=== PATIENT | female | born 1960 | race Hispanic/Latino ===

== ENCOUNTER → 2024-10-01 | Outpatient (CLI) | payer OTHER ==
--- NOTE | 2024-10-01 16:22 | HMCIMG ---
Exam Type: ABD 1VW Clinical Information: IRON DEFICIENCY ANEMIA Comparison: None Findings: Abdomen demonstrates no evidence of pathologic calcification or soft tissue mass. There are no radiopacities to suggest calculous disease. There is abundant fecal matter consistent with constipation. There is no evidence of dilatation to suggest obstruction or adynamic ileus. The bony structures are unremarkable. IMPRESSION: Constipation.
== END | disposition home or self-care (01) ==
LOC: RAH 14:43
PROVIDERS: ATTEND Internal Medicine Gastroenterology
DX: K59.00 Constipation, unspecified (principal); D50.9 Iron deficiency anemia, unspecified
CPT/HCPCS: 74018